=== PATIENT | female | born 1995 | race African-American/Black ===

== ENCOUNTER 2020-10-19 18:22 | Emergency (ER) | payer OTHER ==
[2020-10-19 18:27] VITALS: BP 109/65; PULSE 79; TEMP 98.1; BMI 31.8
[2020-10-19] MEDS ORDERED: KETOROLAC TROMETHAMINE 30 MG/1 ML VIAL IM ONE (19:08)
[2020-10-19] MEDS ORDERED: KETOROLAC TROMETHAMINE 30 MG/1 ML VIAL ONE (19:23)
== END 2020-10-19 21:10 | disposition home or self-care (01) ==
LOC: JERFT 18:22
PROC: 3E0233Z Introduction of Anti-inflammatory into Muscle, Percutaneous Approach (ICD-10-PCS; principal; 2020-10-19)
DX: M25.511 Pain in right shoulder (principal)
CPT/HCPCS: 99284-25

== ENCOUNTER 2020-11-07 00:49 | Inpatient (IN) | payer OTHER ==
[2020-11-07] MEDS ORDERED: ACETAMINOPHEN 1000 MG/100 ML VIAL (NON FORMULARY) IVPB ONE ×2 (01:56→17:40)
[2020-11-07] MEDS ORDERED: METOCLOPRAMIDE HCL INJECTION 10 MG/2 ML VIAL IVPB ONE (01:56)
[2020-11-07] MEDS ORDERED: METOCLOPRAMIDE HCL 10 MG TABLET (FP) PO ONE ×3 (02:06→14:00)
[2020-11-07] MEDS ORDERED: ACETAMINOPHEN/CAFFEINE/BUTALBITAL 1 TAB PO ONE ×2 (02:06→02:24)
[2020-11-07] MEDS ORDERED: ACETAMINOPHEN/CAFFEINE/BUTALBITAL 1 TAB ONE ×3 (02:09→08:22)
[2020-11-07] MEDS ORDERED: SODIUM CHLORIDE 1,000 ML IV STA (05:04)
[2020-11-07] MEDS ORDERED: PROCHLORPERAZINE INJECTION 10 MG/2 ML VIAL IVPB ONE (05:05)
[2020-11-07] MEDS ORDERED: PROCHLORPERAZINE MALEATE 5 MG TABLET ONE (05:14)
[2020-11-07] MEDS ORDERED: SODIUM CHLORIDE 0.9% 500 ML INFUS.BAG IV ONE (05:16)
[2020-11-07 07:09] LABS: BASO % 0.3 % (0-2.0); EOS % 0.1 % (0-4.5); HEMATOCRIT 37.4 % (32.4-45.2); HEMOGLOBIN 12.1 GM/dL (10.7-15.3); LYMPH % 8.7 % (8-40); MCH 25.9 pg (25.7-33.7); MCHC 32.3 g/dl (32.0-36.0); MEAN CELL VOLUME 80.3 fl (80-96); MEAN PLT VOLUME 9.2 fl (7.5-11.1); NEUT % 86.9 % (42.8-82.8); PLATELET COUNT 248 10^3/uL (134-434); RBC 4.65 M/mm3 (3.60-5.2); RDW 14.4 % (11.6-15.6); WHITE BLOOD COUNT 8.3 K/mm3 (4.0-10.0)
[2020-11-07 07:26] LABS: CALCIUM 8.1 mg/dL (8.5-10.1)
[2020-11-07 07:28] LABS: ALBUMIN 3.4 g/dl (3.4-5.0); BLOOD UREA NITROGEN 5.6 mg/dL (7-18)
[2020-11-07 07:33] LABS: BILIRUBIN,TOTAL 0.2 mg/dL (0.2-1); TOT PROT 7.3 g/dl (6.4-8.2)
[2020-11-07] MEDS ORDERED: ACETAMINOPHEN/CAFFEINE/BUTALBITAL 1 TAB PO PRN (08:02)
[2020-11-07] MEDS ORDERED: ONDANSETRON 4 MG/2 ML VIAL IVPUSH PRN (08:03)
[2020-11-07] MEDS ORDERED: METOCLOPRAMIDE HCL INJECTION 10 MG/2 ML VIAL IVPUSH PRN (08:08)
[2020-11-07] MEDS ORDERED: METOCLOPRAMIDE HCL INJECTION 10 MG/2 ML VIAL ONE (09:35)
[2020-11-07 11:37] VITALS: BMI 33.3
[2020-11-07] MEDS ORDERED: PT OWN MED DRAWER 7, Y5N ONE (13:11)
[2020-11-07] MEDS: acetaZOLAMIDE 250 MG TABLET PO SCH (13:17)
[2020-11-07] MEDS ORDERED: ACETAMINOPHEN 325 MG TABLET (FP) PO ONE (14:00)
[2020-11-07] MEDS: oxyCODONE HCL 5 MG TABLET PO ONE ×3 (14:17→14:23)
[2020-11-07] MEDS: LACTATED RINGERS SOLUTION 1,000 ML/1,000 ML INFUS.BAG IV SCH ×2 (14:19→15:15)
[2020-11-07] MEDS ORDERED: oxyCODONE HCL 5 MG TABLET PO PRN (17:28)
[2020-11-07] MEDS ORDERED: ACETAMINOPHEN 1000 MG/100 ML VIAL (NON FORMULARY) IVPB PRN (17:30)
[2020-11-07] MEDS ORDERED: GABAPENTIN 300 MG CAPSULE PO SCH (22:00)
[2020-11-08] MEDS: LACTATED RINGERS SOLUTION 1,000 ML/1,000 ML INFUS.BAG IV SCH ×3 (00:08→19:15)
[2020-11-08] MEDS ORDERED: ACETAMINOPHEN 1000 MG/100 ML VIAL (NON FORMULARY) IVPB ONE (02:31)
[2020-11-08] MEDS ORDERED: PT OWN MED DRAWER 7, Y5N ONE (09:06)
[2020-11-08] MEDS: DOCUSATE SODIUM 100 MG CAPSULE (FP) PO SCH (10:02)
[2020-11-08] MEDS: acetaZOLAMIDE 250 MG TABLET PO SCH (10:03)
[2020-11-08] MEDS ORDERED: ACETAMINOPHEN 325 MG TABLET (FP) PO PRN (10:36)
[2020-11-08 11:03] LABS: HEMATOCRIT 37.8 % (32.4-45.2); HEMOGLOBIN 12.3 GM/dL (10.7-15.3); MCHC 32.4 g/dl (32.0-36.0); MEAN CELL VOLUME 80.2 fl (80-96); MEAN PLT VOLUME 9.2 fl (7.5-11.1); PLATELET COUNT 233 10^3/uL (134-434); RBC 4.71 M/mm3 (3.60-5.2); RDW 14.5 % (11.6-15.6); WHITE BLOOD COUNT 6.9 K/mm3 (4.0-10.0)
[2020-11-08 11:49] LABS: BLOOD UREA NITROGEN 5.1 mg/dL (7-18)
[2020-11-08 11:51] LABS: CALCIUM 8.9 mg/dL (8.5-10.1)
[2020-11-08 11:52] LABS: CREATININE 0.9 mg/dL (0.55-1.3); PHOSPHOROUS 2.3 mg/dL (2.5-4.9)
[2020-11-08] MEDS: ACETAMINOPHEN 1000 MG/100 ML VIAL (NON FORMULARY) IVPB PRN (18:23)
[2020-11-08] MEDS: oxyCODONE HCL 5 MG TABLET PO PRN (18:24)
[2020-11-08] MEDS ORDERED: CAFFEINE CITRATE 60 MG/3 ML VIAL (ORAL USE ONLY) PO ONE (18:45)
[2020-11-09] MEDS: oxyCODONE HCL 5 MG TABLET PO PRN ×3 (04:33→22:23)
[2020-11-09 09:31] LABS: BASO % 0.5 % (0-2.0); EOS % 1.9 % (0-4.5); HEMATOCRIT 36.4 % (32.4-45.2); HEMOGLOBIN 12.1 GM/dL (10.7-15.3); LYMPH % 32.1 % (8-40); MCH 26.5 pg (25.7-33.7); MCHC 33.2 g/dl (32.0-36.0); MEAN CELL VOLUME 79.7 fl (80-96); MEAN PLT VOLUME 9.4 fl (7.5-11.1); MONO % 8.4 % (3.8-10.2); NEUT % 57.1 % (42.8-82.8); PLATELET COUNT 225 10^3/uL (134-434); RBC 4.57 M/mm3 (3.60-5.2); WHITE BLOOD COUNT 5.9 K/mm3 (4.0-10.0)
[2020-11-09] MEDS ORDERED: PT OWN MED DRAWER 7, Y5N ONE ×2 (09:45→21:56)
[2020-11-09] MEDS: DOCUSATE SODIUM 100 MG CAPSULE (FP) PO SCH (09:47)
[2020-11-09] MEDS: acetaZOLAMIDE 250 MG TABLET PO SCH (09:48)
[2020-11-09] MEDS: LACTATED RINGERS SOLUTION 1,000 ML/1,000 ML INFUS.BAG IV SCH (09:50)
[2020-11-09 09:52] LABS: ALBUMIN 3.2 g/dl (3.4-5.0); BLOOD UREA NITROGEN 6.9 mg/dL (7-18); CALCIUM 8.4 mg/dL (8.5-10.1)
[2020-11-09 09:55] LABS: CREATININE 0.9 mg/dL (0.55-1.3)
[2020-11-09 09:56] LABS: PHOSPHOROUS 3.2 mg/dL (2.5-4.9)
[2020-11-09 09:57] LABS: BILIRUBIN,TOTAL 0.3 mg/dL (0.2-1); TOT PROT 7.1 g/dl (6.4-8.2)
[2020-11-09] MEDS: ACETAMINOPHEN 1000 MG/100 ML VIAL (NON FORMULARY) IVPB PRN (15:19)
[2020-11-09] MEDS ORDERED: HEPARIN NA (PORCINE) 5,000 UNITS/ML 1ML VIAL IVPUSH PRN ×4 (16:41→23:55)
[2020-11-09] MEDS ORDERED: HEPARIN SOD,PORK IN 0.45% NACL 25,000 UNITS/500 ML INFUS.BAG IVPB SCH ×2 (16:45→23:55)
[2020-11-09] MEDS ORDERED: CAFFEINE CITRATE 60 MG/3 ML VIAL (ORAL USE ONLY) PO ONE (18:28)
[2020-11-09 21:55] LABS: INR 1.01 (0.83-1.09); PROTHROMBIN TIME (PATIENT) 12.2 SEC (9.7-13.0)
[2020-11-09] MEDS ORDERED: oxyCODONE HCL 5 MG TABLET PO PRN (23:55)
[2020-11-09] MEDS ORDERED: METOCLOPRAMIDE HCL INJECTION 10 MG/2 ML VIAL IVPUSH PRN (23:55)
[2020-11-10] MEDS ORDERED: ACETAMINOPHEN 650 MG/20.3 ML ORAL SOLUTION (CUPS) PO PRN (02:29)
[2020-11-10] MEDS ORDERED: ACETAMINOPHEN 650 MG/20.3 ML ORAL SOLUTION (CUPS) PO ONE (02:44)
[2020-11-10] MEDS ORDERED: LORazepam 2 MG/ML SDV VIAL IVPB PRN (06:45)
[2020-11-10 07:23] LABS: HEMATOCRIT 37.8 % (32.4-45.2); HEMOGLOBIN 12.5 GM/dL (10.7-15.3); MCH 26.3 pg (25.7-33.7); MEAN CELL VOLUME 79.7 fl (80-96); PLATELET COUNT 253 10^3/uL (134-434); RBC 4.75 M/mm3 (3.60-5.2); RDW 14.3 % (11.6-15.6); WHITE BLOOD COUNT 7.2 K/mm3 (4.0-10.0)
[2020-11-10 07:37] LABS: ALBUMIN 3.5 g/dl (3.4-5.0); CALCIUM 8.6 mg/dL (8.5-10.1)
[2020-11-10 07:38] LABS: BLOOD UREA NITROGEN 7.9 mg/dL (7-18)
[2020-11-10 07:41] LABS: CREATININE 0.8 mg/dL (0.55-1.3); PHOSPHOROUS 3.8 mg/dL (2.5-4.9)
[2020-11-10 07:42] LABS: BILIRUBIN,TOTAL 0.3 mg/dL (0.2-1); TOT PROT 7.9 g/dl (6.4-8.2)
[2020-11-10] MEDS ORDERED: PT OWN MED DRAWER 7, Y5N ONE (09:13)
[2020-11-10] MEDS ORDERED: DOCUSATE SODIUM 100 MG CAPSULE (FP) PO SCH (10:00)
[2020-11-10] MEDS ORDERED: acetaZOLAMIDE 250 MG TABLET PO SCH (10:00)
[2020-11-10] MEDS ORDERED: MUPIROCIN 2% TOPICAL OINTMENT FOR DECOLONIZATION NS SCH (10:00)
[2020-11-10 11:03] VITALS: BP 125/73; PULSE 81; TEMP 99.2
[2020-11-10] MEDS ORDERED: CHLORHEXIDINE GLUCONATE 4% CLEANSER FOR DECOLONIZATION TP SCH (22:00)
[2020-11-12 14:11] LABS: DRVVT - 28.1 sec (0.0-47.0)
== END 2020-11-10 11:35 | disposition short-term general hospital (02) | DRG 54 ==
LOC: JER 00:49 → JERBED 06:31 → J6S 10:32 → JICU 11-09 23:54
PROVIDERS: ATTEND Internal Medicine Pulmonary Disease
DX: G97.1 Other reaction to spinal and lumbar puncture (principal); I67.6 Nonpyogenic thrombosis of intracranial venous system; E66.9 Obesity, unspecified; E78.5 Hyperlipidemia, unspecified; Z68.33 Body mass index [BMI] 33.0-33.9, adult; G93.2 Benign intracranial hypertension; Y84.4 Aspiration of fluid as the cause of abnormal reaction of the patient, or of later complication, without mention of misadventure at the time of the procedure
CPT/HCPCS: 36415; 70450-TC; 70546-TC; 70551-TC; 70553-TC; 80048; 80053; 83735; 84100; 84703; 85025; 85027; 85306; 85384; 85597; 85610; 85613; 85730; 85732; 86146; 86147; 90675; 93005; 93010; 99285-25; C9803; J0131; U0003; U0005